=== PATIENT | female | born 1940 | race Two or more races ===

== ENCOUNTER 2019-03-23 19:27 | Emergency (ER) | payer MEDICARE, OTHER ==
[~2019-03-23] VITALS: Ht 160 cm; Wt 71.2 kg
[2019-03-23 19:38] VITALS: Ht 160 cm; Wt 71.2 kg
[2019-03-23 22:40] VITALS: BP 164/75
== END 2019-03-23 22:56 | disposition home or self-care (01) ==
LOC: ED 19:27
DX: J45.901 Unspecified asthma with (acute) exacerbation (principal); I10 Essential (primary) hypertension; E11.9 Type 2 diabetes mellitus without complications; E78.00 Pure hypercholesterolemia, unspecified
CPT/HCPCS: 82962; J7512; J7613; J7644; Q0092